=== PATIENT | female | born 1995 ===

== ENCOUNTER 2023-09-24 10:03 | Emergency (ER) | payer SELFPAY ==
[2023-09-24] MEDS ORDERED: Metoclopramide 10 MG/2 ML SDV IVPUSH ONE (10:18)
[2023-09-24] MEDS ORDERED: Sodium Chloride 0.9% 10 ML Syringe FLUSH PRN (10:18)
[2023-09-24] MEDS ORDERED: Sodium Chloride 0.9% 1,000 ML IV ONE (10:18)
== END 2023-09-24 11:20 | disposition home or self-care (01) ==
LOC: DL.ED 10:03
DX: O21.9 Vomiting of pregnancy, unspecified (principal); O99.511 Diseases of the respiratory system complicating pregnancy, first trimester; J32.8 Other chronic sinusitis; B96.89 Other specified bacterial agents as the cause of diseases classified elsewhere; Z3A.11 11 weeks gestation of pregnancy
CPT/HCPCS: 96361; 96374; 99283; J2765; J7030